=== PATIENT | female | born 1980 | race Caucasian/White ===

== ENCOUNTER 2017-05-14 17:56 | Emergency (ER) | payer OTHER ==
[2017-05-14 18:03] VITALS: BP 126/80
== END 2017-05-14 19:23 | disposition left against medical advice (07) ==
LOC: ED 17:56
DX: R10.9 Unspecified abdominal pain (principal); Z53.20 Procedure and treatment not carried out because of patient's decision for unspecified reasons
CPT/HCPCS: 99282

== ENCOUNTER 2017-05-15 03:28 | Emergency (ER) | payer OTHER ==
[2017-05-15] MEDS ORDERED: Hyoscyamine TAB* 0.125 MG PO ONE (04:07)
[2017-05-15] MEDS ORDERED: Al Hydrox/Mg Hydrox/Simet LIQ* 30 ML UDC PO ONE (04:07)
[2017-05-15] MEDS ORDERED: Famotidine TAB* 20 MG PO ONE (04:07)
[2017-05-15] MEDS ORDERED: Lidocaine 2% VISCOUS* 15 ML UDC PO ONE (04:07)
[2017-05-15 04:19] LABS: ABS Basophils 0 10^3/ul (0-0.2); ABS Lymphocytes 1.8 10^3/ul (1.0-4.8); ABS Monocytes 0.4 10^3/ul (0-0.8); ABS Neutrophils 2.6 10^3/ul (1.5-7.7); ABS Nucleated RBC 0 10^3/ul; Eosinophil % 16.9 % (0-6); Hematocrit 42 % (35-47); Hemoglobin 14.1 g/dl (12.0-16.0); Lymphocyte % 30.3 % (25-47); Mean Corpuscular HGB Conc 34 g/dl (31-36); Mean Corpuscular Hemoglobin 31 pg (27-31); Mean Corpuscular Volume 92 fL (80-97); Mean Platelet Volume 9.3 um3 (7.4-10.4); Nucleated Red Blood Cells % 0; Platelet Count 201 10^3/ul (150-450); Red Blood Count 4.53 10^6/ul (4.0-5.4); Red Cell Distribution Width 13 % (10.5-15); White Blood Count 5.8 10^3/ul (3.5-10.8)
[2017-05-15 04:22] LABS: Urine Appearance Cloudy; Urine Blood Negative (Negative); Urine Color Yellow; Urine Ketones Negative (Negative); Urine Protein Negative (Negative); Urine Specific Gravity 1.023 (1.010-1.030); Urine Urobilinogen Negative (Negative)
[2017-05-15 04:36] LABS: EGFR Non-African American 74.7 (>60)
[2017-05-15 05:06] VITALS: BP 110/72
--- NOTE | 2017-05-15 05:55 | ED ---
Kendell Waterman Abhishek, scribed for Demetrius Thurston MD on 05/15/17 at 0416 . Abdominal Pain/Female - HPI Summary HPI Summary: This patient is a 36 year old F presenting to [facility] with a chief complaint of abd pain since 2 weeks ago. Pt has been taking digestive enzymes. The patient rates the pain 7/10 in severity. Symptoms aggravated by food. Symptoms alleviated by nothing. Patient denies nausea, vomiting, heart burn, urinary symptoms, diarrhea, constipation, irregular BM, and back pain. The pain is described to be located near the upper abd pain. - History of Current Complaint Chief Complaint: EDAbdPain Stated Complaint: ABD PAIN Time Seen by Provider: 05/15/17 03:46 Hx Last Menstrual Period: 05/13/15 Onset/Duration: Gradual Onset, Lasting Weeks - since 2 weeks ago, Still Present Timing: Constant Severity Initially: Moderate Severity Currently: Moderate Pain Intensity: 7 Pain Scale Used: 0-10 Numeric Location: Epigastric Aggravating Factor(s): Food Alleviating Factor(s): Nothing Associated Signs and Symptoms: Positive: Other: - flatulence, Negative irregualr BM and "heart burn.". Negative: Back Pain, Constipation, Urinary Symptoms, Nausea, Vomiting Allergies/Adverse Reactions: Allergies Allergy/AdvReac Type Severity Reaction Status Date / Time cortisone Allergy Rash And Verified 05/15/17 03:32 Itching hydromorphone [From Dilaudid] Allergy Rash Verified 05/15/17 03:32 PMH/Surg Hx/FS Hx/Imm Hx Endocrine/Hematology History: Denies: Hx Anticoagulant Therapy, Hx Diabetes, Hx Thyroid Disease Cardiovascular History: Denies: Hx Hypertension, Hx Pacemaker/ICD Respiratory History: Reports: Hx Asthma - exercise induced Denies: Hx Chronic Obstructive Pulmonary Disease (COPD) GI History: Denies: Hx Ulcer History: Denies: Hx Renal Disease Neurological History: Denies: Hx Dementia, Hx Seizures Psychiatric History: Reports: Hx Anxiety - takes vistaril at night Denies: Hx Substance Abuse - Cancer History Cancer Type, Location and Year: tendonitis - left wrist - Surgical History Surgery Procedure, Year, and Place: appendectomy, tonsillectomy and adenoidectomy - Immunization History Date of Tetanus Vaccine: 2006 Date of Influenza Vaccine: has not received Infectious Disease History: No Infectious Disease History: Denies: Hx Clostridium Difficile, Hx Hepatitis, Hx Human Immunodeficiency Virus (HIV), Hx of Known/Suspected MRSA, Hx Shingles, Hx Tuberculosis, Hx Known/ Suspected VRE, Hx Known/Suspected VRSA, History Other Infectious Disease, Traveled Outside the [place] in Last 30 Days - Family History Known Family History: Positive: None - Reviewed and noncontributory - Social History Occupation: Employed Full-time Alcohol Use: None Substance Use Type: Reports: None Smoking Status (MU): Former Smoker Have You Smoked in the Last Year: No Review of Systems Constitutional: Negative Eyes: Negative ENT: Negative Cardiovascular: Negative Respiratory: Negative Gastrointestinal: Other - flatulence Positive: Abdominal Pain, Other - Negative constipation, irregular BM. Negative : Vomiting, Diarrhea, Nausea Positive: no symptoms reported Musculoskeletal: Other - Negative back pain Skin: Negative Neurological: Negative Psychological: Normal All Other Systems Reviewed And Are Negative: Yes Physical Exam - Summary Physical Exam Summary: Appearance: Well appearing, no pain distress Skin: warm, dry, reflects adequate perfusion Head/face: normal Eyes: EOMI, GALE ENT: normal Neck: supple, non-tender Respiratory: CTA, breath sounds present Cardiovascular: RRR, pulses symmetrical Abdomen: non-tender, soft Bowel Sounds: present Musculoskeletal: strength/ROM intact, no right upper quadrant pain, negative Durant's sign, Mild epigastric Neuro: normal, sensory motor intact, A&Ox3 Triage Information Reviewed: Yes Vital Signs On Initial Exam: Initial Vitals Temp Pulse Resp BP Pulse Ox 98.6 F 74 16 112/59 100 05/15/17 03:29 05/15/17 03:29 05/15/17 03:29 05/15/17 03:29 05/15/17 03:29 Vital Signs Reviewed: Yes Diagnostics - Vital Signs Vital Signs Temp Pulse Resp BP Pulse Ox 05/15/17 03:29 98.6 F 74 16 112/59 100 - Laboratory Lab Results: Lab Results 05/15/17 05/15/17 05/15/17 Range/Units 04:00 04:00 04:00 WBC 5.8 (3.5-10.8) 10^3/ul RBC 4.53 (4.0-5.4) 10^6/ul Hgb 14.1 (12.0-16.0) g/dl Hct 42 (35-47) % MCV 92 (80-97) fL MCH 31 (27-31) pg MCHC 34 (31-36) g/dl RDW 13 (10.5-15) % Plt Count 201 (150-450) 10^3/ul MPV 9.3 (7.4-10.4) um3 Neut % (Auto) 45.5 (38-83) % Lymph % (Auto) 30.3 (25-47) % [place] % (Auto) 6.9 (0-7) % Eos % (Auto) 16.9 H (0-6) % Baso % (Auto) 0.4 (0-2) % Absolute Neuts (auto) 2.6 (1.5-7.7) 10^3/ul Absolute Lymphs (auto) 1.8 (1.0-4.8) 10^3/ul Absolute Monos (auto) 0.4 (0-0.8) 10^3/ul Absolute Eos (auto) 1.0 H (0-0.6) 10^3/ul Absolute Basos (auto) 0 (0-0.2) 10^3/ul Absolute Nucleated RBC 0 10^3/ul Nucleated RBC % 0 Sodium 142 (139-145) mmol/L Potassium 3.8 (3.5-5.0) mmol/L Chloride 108 (101-111) mmol/L Carbon Dioxide 27 (22-32) mmol/L Anion Gap 7 (2-11) mmol/L BUN 20 (6-24) mg/dL Creatinine 0.86 (0.51-0.95) mg/dL Est GFR ( Amer) 96.0 (>60) Est GFR (Non-Af Amer) 74.7 (>60) BUN/Creatinine Ratio 23.3 H (8-20) Glucose 92 (70-100) mg/dL Calcium 8.8 (8.6-10.3) mg/dL Total Bilirubin 0.70 (0.2-1.0) mg/dL AST 13 (13-39) U/L ALT 9 (7-52) U/L Alkaline Phosphatase 36 (34-104) U/L Total Protein 6.3 L (6.4-8.9) g/dL Albumin 3.9 (3.2-5.2) g/dL Globulin 2.4 (2-4) g/dL Albumin/Globulin Ratio 1.6 (1-3) Lipase 36 (11.0-82.0) U/L Beta HCG, Quant < 0.60 mIU/mL Urine Color Yellow Urine Appearance Cloudy Urine pH 7.0 (5-9) Ur Specific [place] 1.023 (1.010-1.030) Urine Protein Negative (Negative) Urine Ketones Negative (Negative) Urine Blood Negative (Negative) Urine Nitrate Negative (Negative) Urine Bilirubin Negative (Negative) Urine Urobilinogen Negative (Negative) Ur Leukocyte Esterase Negative (Negative) Urine Glucose Negative (Negative) Result Diagrams: 05/15/17 04:00 05/15/17 04:00 Lab Statement: Any lab studies that have been ordered have been reviewed, and results considered in the medical decision making process. - Radiology No standard instances Xray Interpretation: Positive (See Comments) - heavy stool burden. Radiology Interpretation Completed By: ED Physician Re-Evaluation - Re-Evaluation First Eval Change: Improved Abdominal Pain Fem Course/Dx - Course Course Of Treatment: pt never told us until after xray showing significant constipation that she has been tx for this with GI. Pt shown film. Labs benign. Increase her bowel regimen -- miralax to 3-4x daily. Mag citrate x 2 and dulcolax suppositories. F/U GI as scheduled in May. - Diagnoses Provider Diagnoses: Generalized abdominal pain, Chronic constipation Discharge - Sign-Out/Discharge Documenting (check all that apply): Discharge - Discharged home - Discharge Plan Condition: Good Disposition: HOME Prescriptions: Bisacodyl SUPP* [Dulcolax Supp*] 10 mg PO BID PRN #10 supp PRN Reason: Constipation Magnesium CITRATE* [Citrate of Magnesia*] 300 ml PO ONCE #2 btl Patient Education Materials: Constipation (ED) Referrals: Priscila Monge MD [Primary Care Provider] - Additional Instructions: Miralax up to 4 times daily. Natural fruit juices. Massage, exercise. Return if worse, new symptoms or other concerns as discussed. - Billing Disposition and Condition Condition: GOOD Disposition: HOME The documentation as recorded by the Kendell almonte Abhishek accurately reflects the service I personally performed and the decisions made by , Demetrius Thurston MD.
--- NOTE | 2017-05-15 08:36 | RAD ---
HISTORY: Periumbilical pain COMPARISONS: CT dated July 27, 2007 VIEWS: Single frontal view of the abdomen FINDINGS: BOWEL: There is a nonobstructive bowel gas pattern. There is a large amount of stool within the colon. CALCULI: There are no abnormal calculi. BONES AND SOFT TISSUES: There are no osseous abnormalities. OTHER FINDINGS: None . IMPRESSION: NONOBSTRUCTIVE BOWEL GAS PATTERN. LARGE AMOUNT OF STOOL THROUGHOUT THE COLON.
== END 2017-05-15 05:00 | disposition home or self-care (01) ==
LOC: ED 03:28
DX: R10.84 Generalized abdominal pain (principal); K59.09 Other constipation
CPT/HCPCS: 36415; 74018; 80053; 81003; 83690; 84702; 85025; 99283; A9270-GY